=== PATIENT | male | born 1940 | race Caucasian/White ===

== ENCOUNTER 2018-02-22 03:33 | Emergency (ER) | payer OTHER ==
[~2018-02-22] VITALS: Ht 170.2 cm; Wt 63.0 kg
--- NOTE | ~2018-02-22 | EKG ---
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 : 1940 Requested By: Lennox Soto Order Number: [id number] MD: Darshan Sin Measurements Intervals [place] Rate: 67 P: 75 ND: 165 QRS: 27 QRSD: 105 T: 41 QT: 420 QTc: 444 Interpretive Statements Sinus rhythm Ventricular trigeminy Compared to ECG 02/21/2016 13:07:28 Ventricular premature complex(es) now present Electronically Signed On 02-22-2018 12:59:03 CDT by Darshan Sin [email or web address] <ELECTRONICALLY SIGNED> By: Darshan Sin MD, [facility] 02/22/18 1259 [id number] Darshan Sin MD, [facility] /EPI
[~2018-02-22 03:33] MED LIST: ACETAMINOPHEN325 M1 PO; ADULT LOW DOSE81 MG PO; AMANTADINE100 M1 PO; AMBIEN 10 MG TA10 MG PO; ANUSOL1 EACH; BISAC-EVAC10 MG; CEPASTAT CHERR18 TA2 PO; CLONAZEPAM0.5 MG PO; COLACE 100 MG100 MG PO; ENOXAPARIN30 MG/0.1 SUBQ; HYDROCODONE-AP1 EAC6 PO; KEFLEX250 MG PO; KLOR-CON 1010 MEQ PO; LASIX 20 MG TAB20 MG PO; LORAZEPAM 1 MG T1 M1 PO; LORAZEPAM 1 MG T1 MG PO; LYRICA 75 MG CA75 MG PO; MIRALAX255 GM; MULTIVITAMINS1 EAC7 PO; MYRBETRIQ50 MG PO; OLANZAPINE20 MG PO; OXYCODONE HCL 55 MG PO; PAXIL 20 MG TAB20 M1 PO; PROBIOTIC1 EAC1 PO; REMERON15 MG PO; SENNA8.6 MG PO; TEGRETOL XR100 MG PO; TOPAMAX100 MG PO; TRAZODONE 150150 M1 PO; VITAMIN D2000 UNIT PO; XANAX 0.25 MG0.25 MG PO; ZYPREXA 10 MG T10 M1 PO; ZYPREXA 5 MG TAB5 M1 PO; [UNRECOGNIZED DRUG - OTHER] PO
[2018-02-22] MEDS ORDERED: ZYPREXA2.5 MG PO (03:49)
[2018-02-22] MEDS ORDERED: TRILEPTAL150 MG PO (03:50)
[2018-02-22 05:50] LABS: ABSOLUTE NEUTROPHILS 9.1 thou/uL (1.4-8.2); BASOPHILS 0.4 % (0.0-2.0); HEMATOCRIT 42.7 % (42.0-52.0); HEMOGLOBIN 14.4 gm/dL (14.0-18.0); LYMPHOCYTES 20.8 % (24.0-44.0); MCH 31.6 pg (26.0-34.0); MCHC 33.7 g/dL (28.0-37.0); MCV 93.8 fL (80.0-100.0); MONOCYTES 5.6 % (1.0-8.0); PLATELET COUNT 311 thou/uL (150-400); POLYS 72.2 % (36.0-66.0); RBC 4.55 mil/uL (4.50-6.00); RDW 13.4 % (10.5-14.5); WBC 12.7 thou/uL (4.0-11.0)
[2018-02-22 05:53] LABS: URINE BILIRUBIN NEGATIVE (Negative); URINE BLOOD NEGATIVE (Negative); URINE CLARITY CLEAR; URINE COLOR YELLOW; URINE GLUCOSE-RANDOM* NEGATIVE (Negative); URINE KETONES NEGATIVE (Negative); URINE LEUKOCYTES-REFLEX NEGATIVE (Negative); URINE NITRITE-REFLEX NEGATIVE (Negative); URINE PROTEIN (DIPSTICK) NEGATIVE (Negative); URINE SPECIFIC GRAVITY 1.015 (1.005-1.035)
[2018-02-22 06:45] LABS: ANION GAP 5 mmol/L (7-16); BUN 23 mg/dL (7-18); CALCIUM 10.2 mg/dL (8.5-10.1); CHLORIDE 105 mmol/L (98-107); CO2 28 mmol/L (21-32); CREATININE 1.4 mg/dL (0.7-1.3); GLUCOSE 119 mg/dL (74-106); POTASSIUM 4.3 mmol/L (3.5-5.1); SODIUM 138 mmol/L (136-145)
[2018-02-22 06:54] LABS: TROPONIN-I < 0.04 ng/mL (<0.06)
== END 2018-02-22 08:58 | disposition home or self-care (01) ==
LOC: ER 03:33
PROVIDERS: Emergency Medicine
DX: S62.309A Unspecified fracture of unspecified metacarpal bone, initial encounter for closed fracture (principal); W19.XXXA Unspecified fall, initial encounter; Y93.89 Activity, other specified; Y92.89 Other specified places as the place of occurrence of the external cause; Y99.8 Other external cause status; M19.90 Unspecified osteoarthritis, unspecified site; F31.9 Bipolar disorder, unspecified; Z85.46 Personal history of malignant neoplasm of prostate; Z88.0 Allergy status to penicillin; Z88.8 Allergy status to other drugs, medicaments and biological substances

== ENCOUNTER 2018-05-30 03:12 | Emergency (ER) | payer OTHER ==
[~2018-05-30] VITALS: Ht 170.2 cm; Wt 55.6 kg
--- NOTE | ~2018-05-30 | EKG ---
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
[~2018-05-30 03:12] MED LIST changes: +TRILEPTAL150 MG PO; +ZYPREXA2.5 MG PO
[2018-05-30 05:21] LABS: ABSOLUTE NEUTROPHILS 7.7 thou/uL (1.4-8.2); BASOPHILS 0.4 % (0.0-2.0); HEMATOCRIT 35.1 % (42.0-52.0); HEMOGLOBIN 11.8 gm/dL (14.0-18.0); LYMPHOCYTES 16.2 % (24.0-44.0); MCH 31.7 pg (26.0-34.0); MCHC 33.7 g/dL (28.0-37.0); MCV 94.2 fL (80.0-100.0); MONOCYTES 6.6 % (1.0-8.0); PLATELET COUNT 279 thou/uL (150-400); POLYS 75.8 % (36.0-66.0); RBC 3.73 mil/uL (4.50-6.00); RDW 13.6 % (10.5-14.5); WBC 10.2 thou/uL (4.0-11.0)
[2018-05-30 05:24] LABS: URINE BILIRUBIN NEGATIVE (Negative); URINE BLOOD NEGATIVE (Negative); URINE CLARITY CLEAR; URINE COLOR YELLOW; URINE GLUCOSE-RANDOM* NEGATIVE (Negative); URINE KETONES NEGATIVE (Negative); URINE LEUKOCYTES-REFLEX NEGATIVE (Negative); URINE NITRITE-REFLEX NEGATIVE (Negative); URINE PROTEIN (DIPSTICK) NEGATIVE (Negative)
[2018-05-30 05:30] LABS: APTT 24.5 Seconds (24.5-32.8); PROTIME 10.5 Seconds (9.3-11.4)
[2018-05-30 05:33] LABS: AMP/METHAMP Negative (Negative); BARBITURATES Negative (Negative); BENZODIAZEPINES Negative (Negative); COCAINE Negative (Negative); METHADONE Negative (Negative); OPIATES Negative (Negative); PCP Negative (Negative)
[2018-05-30 05:34] LABS: ANION GAP 6 mmol/L (7-16); BUN 21 mg/dL (7-18); CALCIUM 9.5 mg/dL (8.5-10.1); CHLORIDE 108 mmol/L (98-107); CO2 27 mmol/L (21-32); CREATININE 1.3 mg/dL (0.7-1.3); GLUCOSE 96 mg/dL (74-106); POTASSIUM 3.7 mmol/L (3.5-5.1); SODIUM 141 mmol/L (136-145)
[2018-05-30 05:41] LABS: ALBUMIN 3.3 g/dL (3.4-5.0); MAGNESIUM 2.1 mg/dL (1.8-2.4); SGOT 24 U/L (15-37); SGPT 23 U/L (30-65); TOTAL BILIRUBIN 0.7 mg/dL (<0.1-1.0); TOTAL PROTEIN 6.5 g/dL (6.4-8.2); TROPONIN-I <0.06 ng/mL (<0.06)
== END 2018-05-30 08:53 | disposition home or self-care (01) ==
LOC: ER 03:12
PROVIDERS: Emergency Medicine
DX: S01.81XA Laceration without foreign body of other part of head, initial encounter (principal); S20.212A Contusion of left front wall of thorax, initial encounter; S06.5X0A Traumatic subdural hemorrhage without loss of consciousness, initial encounter; F31.9 Bipolar disorder, unspecified; F20.9 Schizophrenia, unspecified; K64.9 Unspecified hemorrhoids; Z85.46 Personal history of malignant neoplasm of prostate; F42.9 Obsessive-compulsive disorder, unspecified; Z90.49 Acquired absence of other specified parts of digestive tract; Z90.89 Acquired absence of other organs; G62.9 Polyneuropathy, unspecified; Z88.8 Allergy status to other drugs, medicaments and biological substances; Z88.0 Allergy status to penicillin; W18.39XA Other fall on same level, initial encounter; Y92.002 Bathroom of unspecified non-institutional (private) residence as the place of occurrence of the external cause; Y93.89 Activity, other specified; Y99.8 Other external cause status